=== PATIENT | female | born 1955 | race Caucasian/White ===

== ENCOUNTER 2017-03-09 22:14 | Emergency (ER) | payer MEDICAID ==
[~2017-03-09 22:14] MED LIST: ANTIVERT/2525 MG PO; CLOPIDOGREL75 M1 PO; COLACE100 MG PO; CYMBALTA60 M1 PO; ENALAPRIL MALEAT5 MG PO; FERROUS SULFAT325 M2 PO; GABAPENTIN300 M2 PO; GLIPIZIDE10 MG PO; GLU500 PO; HEP-FORTE1 CAP PO; LAMICTAL100 M2 PO; LAMOTRIGINE100 M1 PO; LEVAQUIN750 MG PO; LITHIUM CARBON300 MG PO; LORAZEPAM0.5 MG PO; METFORMIN HCL500 MG PO; MULTI VITAMINS1 TA1 PO; NORCO1 TAB PO; RES30 PO; RESTORIL30 MG PO; RIS1 PO; RISPERDAL2 MG PO; SIMVASTATIN40 M1 PO; VITAMIN C500 MG PO
[2017-03-10 01:20] VITALS: BP 165/76
== END 2017-03-10 01:20 | disposition home or self-care (01) ==
LOC: ED 22:14
DX: S06.0X1A Concussion with loss of consciousness of 30 minutes or less, initial encounter (principal); Z88.0 Allergy status to penicillin; W01.0XXA Fall on same level from slipping, tripping and stumbling without subsequent striking against object, initial encounter; Y93.89 Activity, other specified; Y99.8 Other external cause status; Y92.89 Other specified places as the place of occurrence of the external cause

== ENCOUNTER 2017-10-09 23:07 | Inpatient (IN) | payer MEDICAID ==
[~2017-10-09] VITALS: Ht 160 cm; Wt 85.0 kg
[~2017-10-09 23:07] MED LIST changes: +CYCLOBENZAPRINE10 MG PO; +FUROSEMIDE40 MG PO; -GABAPENTIN300 M2 PO; +GLIPIZIDE10 M2; +GOOD SENSE OMEP20 MG PO; +LITHIUM CARBON300 M2 PO; +NAPROSYN500 MG PO; +NEU100; +POTASSIUM CHLOR8 MEQ; -RISPERDAL2 MG PO; +TRAZODONE50 M1 PO
[2017-10-09 23:16] VITALS: Ht 160 cm; Wt 85.0 kg
[2017-10-09 23:33] LABS: BASOPHIL % 0.4 % (0-2)
[2017-10-09 23:34] LABS: PLATELET COUNT 424 x10^3mcL (130-400)
[2017-10-09 23:40] LABS: CALCIUM 10.1 mg/dL (8.5-10.1); CARBON DIOXIDE 26.2 mmol/L (21-32); CHLORIDE SERUM 98 mmol/L (98-107); CREATININE SERUM 1.5 mg/dL (0.6-1.0); GFR1 37 mL/min; GLUCOSE SERUM 268 mg/dL (74-106); POTASSIUM SERUM 4.9 mmol/L (3.5-5.1); SODIUM SERUM 135 mmol/L (136-145)
[2017-10-09 23:44] LABS: ALBUMIN 3.7 g/dL (3.4-5.0); ALKALINE PHOSPHATASE 185 U/L (46-116); ALT/SGPT 20 U/L (14-59); AST/SGOT 13 U/L (15-37); BILIRUBIN TOTAL 0.43 mg/dL (0.20-1.00); TOTAL PROTEIN, SERUM 7.6 g/dL (6.4-8.2)
[2017-10-10 01:44] LABS: AMPHETAMINE QUAL UR NONE DETECTED (NEG <=1000)
[2017-10-10 10:10] LABS: CHOLESTEROL/HDL RATIO 3.7
[2017-10-10 10:20] LABS: FREE T4 1.33 ng/dL (0.76-1.46); FREE THYROXINE INDEX 3.4 ug/dL (1.4-4.5); T3 TOTAL 0.8 ng/mL; T4(THYROXINE) 8.6 ug/dL (4.7-13.3)
[2017-10-10 19:34] VITALS: BP 150/82
[2017-10-10 22:19] LABS: UA SPECIFIC GRAVITY 1.025 (1.005-1.035); microscopic required? YES; urine erythrocyte 1+ (NEGATIVE)
[2017-10-11 05:18] VITALS: BP 138/56
[2017-10-11 06:55] LABS: BASOPHIL % 0.7 % (0-2); PLATELET COUNT 308 x10^3mcL (130-400)
[2017-10-11 07:17] LABS: RED CELL DISTRIBUTION WIDTH 16.8 % (11.5-14.5)
[2017-10-11 07:24] LABS: CALCIUM 9.1 mg/dL (8.5-10.1); CARBON DIOXIDE 24.7 mmol/L (21-32); CREATININE SERUM 1.3 mg/dL (0.6-1.0)
[2017-10-11 08:40] VITALS: BP 155/72
[2017-10-11 21:00] VITALS: BP 149/75
[2017-10-12 05:05] VITALS: BP 150/67
[2017-10-12 06:38] LABS: BASOPHIL % 0.4 % (0-2); PLATELET COUNT 282 x10^3mcL (130-400)
[2017-10-12 06:40] LABS: CALCIUM 9.8 mg/dL (8.5-10.1); CARBON DIOXIDE 23.7 mmol/L (21-32); CREATININE SERUM 1.2 mg/dL (0.6-1.0); POTASSIUM SERUM 3.8 mmol/L (3.5-5.1)
[2017-10-12 06:43] LABS: RED CELL DISTRIBUTION WIDTH 16.4 % (11.5-14.5)
[2017-10-12 08:20] VITALS: BP 149/91
[2017-10-12 09:00] VITALS: BP 149/91
[2017-10-13 10:18] VITALS: BP 147/87
[2017-10-13 13:07] VITALS: BP 129/69
[2017-10-13 17:29] VITALS: BP 115/71
[2017-10-13 21:20] VITALS: BP 108/49
[2017-10-14 05:15] VITALS: BP 137/72
[2017-10-14 08:21] VITALS: BP 117/76
[2017-10-14 16:29] VITALS: BP 150/86
[2017-10-15 06:45] VITALS: BP 134/71
[2017-10-16 05:32] VITALS: BP 163/81
[2017-10-16 17:05] VITALS: BP 160/94
[2017-10-17 05:52] VITALS: BP 171/89
[2017-10-17 10:43] VITALS: BP 168/84
[2017-10-17 15:47] VITALS: BP 154/92
[2017-10-17 18:45] VITALS: BP 164/84
[2017-10-17 21:13] VITALS: BP 171/84
[2017-10-18 05:21] VITALS: BP 174/83
[2017-10-18 06:37] VITALS: BP 174/83
[2017-10-18 08:12] VITALS: BP 178/80
[2017-10-18 09:50] VITALS: BP 156/79
[2017-10-18 13:30] VITALS: BP 146/71
[2017-10-18 19:00] VITALS: BP 145/75
[2017-10-19 05:33] VITALS: BP 132/61
[2017-10-19 05:54] LABS: CALCIUM 9.2 mg/dL (8.5-10.1); CARBON DIOXIDE 25.4 mmol/L (21-32); CREATININE SERUM 1.3 mg/dL (0.6-1.0); POTASSIUM SERUM 3.9 mmol/L (3.5-5.1)
[2017-10-19 06:09] LABS: BASOPHIL % 0.4 % (0-2); PLATELET COUNT 198 x10^3mcL (130-400)
[2017-10-19 06:56] LABS: RED CELL DISTRIBUTION WIDTH 16.7 % (11.5-14.5)
[2017-10-19 08:46] VITALS: BP 116/49
[2017-10-19 16:19] VITALS: BP 119/73
[2017-10-19 20:56] VITALS: BP 144/75
[2017-10-20 06:05] VITALS: BP 150/66
[2017-10-20 08:11] VITALS: BP 152/77
[2017-10-20 17:05] VITALS: BP 131/65
[2017-10-20 21:05] VITALS: BP 122/56
[2017-10-21 05:06] VITALS: BP 138/63
[2017-10-21 09:00] VITALS: BP 138/47
[2017-10-21 13:30] VITALS: BP 131/68
[2017-10-21 17:09] VITALS: BP 149/72
[2017-10-21 20:34] VITALS: BP 157/75
[2017-10-22 05:59] VITALS: BP 102/49
[2017-10-22 09:00] VITALS: BP 135/70
[2017-10-22 12:54] VITALS: BP 119/86
[2017-10-22 17:59] VITALS: BP 125/61
[2017-10-22 22:00] VITALS: BP 131/68
[2017-10-23 06:01] VITALS: BP 124/66
[2017-10-23 09:10] VITALS: BP 121/62
[2017-10-23 20:59] VITALS: BP 164/104
[2017-10-24 05:30] VITALS: BP 112/51
[2017-10-24 07:33] LABS: CARBON DIOXIDE 26.4 mmol/L (21-32); CREATININE SERUM 1.4 mg/dL (0.6-1.0); MAGNESIUM 1.2 mg/dL (1.8-2.4); PHOSPHOROUS 3.5 mg/dL (2.5-4.9); POTASSIUM SERUM 3.3 mmol/L (3.5-5.1)
[2017-10-24 10:00] VITALS: BP 133/74
[2017-10-24 20:49] VITALS: BP 120/49
[2017-10-25 05:46] VITALS: BP 107/62
[2017-10-25 15:35] LABS: BASOPHIL % 0.3 % (0-2); PLATELET COUNT 325 x10^3mcL (130-400)
[2017-10-25 15:42] LABS: RED CELL DISTRIBUTION WIDTH 16.9 % (11.5-14.5)
[2017-10-25 15:43] LABS: CALCIUM 9.7 mg/dL (8.5-10.1); CARBON DIOXIDE 26.7 mmol/L (21-32); CREATININE SERUM 1.5 mg/dL (0.6-1.0); MAGNESIUM 1.8 mg/dL (1.8-2.4); PHOSPHOROUS 3.5 mg/dL (2.5-4.9)
[2017-10-25 20:30] VITALS: BP 125/65
[2017-10-25 20:51] VITALS: BP 125/65
[2017-10-26 05:41] VITALS: BP 140/65
[2017-10-26 09:24] VITALS: BP 142/60
[2017-10-26 13:09] VITALS: BP 112/48
[2017-10-26 17:03] VITALS: BP 108/58
[2017-10-27 05:12] VITALS: BP 124/60
[2017-10-27 06:38] LABS: BASOPHIL % 0.5 % (0-2); PLATELET COUNT 322 x10^3mcL (130-400)
[2017-10-27 06:42] LABS: RED CELL DISTRIBUTION WIDTH 17.1 % (11.5-14.5)
[2017-10-27 06:53] LABS: CARBON DIOXIDE 28.6 mmol/L (21-32); CREATININE SERUM 1.3 mg/dL (0.6-1.0); POTASSIUM SERUM 3.4 mmol/L (3.5-5.1)
[2017-10-27 09:43] VITALS: BP 133/54
[2017-10-27 17:37] VITALS: BP 125/63
[2017-10-27 20:54] VITALS: BP 123/59
[2017-10-28 05:36] VITALS: BP 145/49
[2017-10-28 06:47] LABS: CALCIUM 9.6 mg/dL (8.5-10.1); CARBON DIOXIDE 27.6 mmol/L (21-32); CREATININE SERUM 1.4 mg/dL (0.6-1.0); MAGNESIUM 1.6 mg/dL (1.8-2.4); PHOSPHOROUS 2.8 mg/dL (2.5-4.9); POTASSIUM SERUM 3.4 mmol/L (3.5-5.1)
[2017-10-28 20:57] VITALS: BP 146/75
[2017-10-29 05:26] VITALS: BP 128/60
[2017-10-29 06:35] LABS: CALCIUM 9.2 mg/dL (8.5-10.1); CARBON DIOXIDE 30.5 mmol/L (21-32); CREATININE SERUM 1.5 mg/dL (0.6-1.0); POTASSIUM SERUM 3.5 mmol/L (3.5-5.1)
[2017-10-29 08:45] VITALS: BP 128/61
[2017-10-30 07:46] VITALS: BP 125/52
[2017-10-30 16:01] VITALS: BP 123/50
[2017-10-30 20:01] VITALS: BP 122/61
[2017-10-31 04:56] VITALS: BP 151/66
[2017-10-31 06:20] LABS: CALCIUM 10.1 mg/dL (8.5-10.1); CARBON DIOXIDE 30.8 mmol/L (21-32); CREATININE SERUM 1.9 mg/dL (0.6-1.0); PHOSPHOROUS 2.9 mg/dL (2.5-4.9); POTASSIUM SERUM 3.8 mmol/L (3.5-5.1)
[2017-10-31 08:27] VITALS: BP 106/58
[2017-10-31 18:30] VITALS: BP 138/60
[2017-10-31 21:01] VITALS: BP 145/64
[2017-11-01 05:10] VITALS: BP 145/66
[2017-11-01 09:21] VITALS: BP 138/76
[2017-11-01 16:58] VITALS: BP 130/73
[2017-11-01 21:13] VITALS: BP 154/69
[2017-11-02 05:49] VITALS: BP 148/62
[2017-11-02 06:14] LABS: BASOPHIL % 0.4 % (0-2); PLATELET COUNT 333 x10^3mcL (130-400)
[2017-11-02 06:26] LABS: CALCIUM 10.2 mg/dL (8.5-10.1); CARBON DIOXIDE 30.4 mmol/L (21-32); CREATININE SERUM 1.8 mg/dL (0.6-1.0); MAGNESIUM 1.9 mg/dL (1.8-2.4); PHOSPHOROUS 2.6 mg/dL (2.5-4.9); POTASSIUM SERUM 3.8 mmol/L (3.5-5.1)
[2017-11-02 07:07] LABS: RED CELL DISTRIBUTION WIDTH 17.1 % (11.5-14.5)
[2017-11-02 09:30] VITALS: BP 100/56; BP 148/69
[2017-11-02 17:46] VITALS: BP 145/68
[2017-11-02 21:54] VITALS: BP 131/61
[2017-11-03 05:39] VITALS: BP 117/59
[2017-11-03 08:33] VITALS: BP 113/54
[2017-11-03 17:53] VITALS: BP 124/54
[2017-11-04 05:56] VITALS: BP 130/52
[2017-11-04 06:12] LABS: BASOPHIL % 0.4 % (0-2); PLATELET COUNT 298 x10^3mcL (130-400)
[2017-11-04 06:37] LABS: RED CELL DISTRIBUTION WIDTH 17.1 % (11.5-14.5)
[2017-11-04 06:41] LABS: CALCIUM 10.6 mg/dL (8.5-10.1); CARBON DIOXIDE 28.9 mmol/L (21-32); CREATININE SERUM 1.8 mg/dL (0.6-1.0); MAGNESIUM 1.9 mg/dL (1.8-2.4); PHOSPHOROUS 2.5 mg/dL (2.5-4.9); POTASSIUM SERUM 4.2 mmol/L (3.5-5.1)
[2017-11-04 10:46] VITALS: BP 111/63
[2017-11-04 14:00] VITALS: BP 136/61
[2017-11-04 20:51] VITALS: BP 141/63
[2017-11-05 05:25] VITALS: BP 133/70
[2017-11-05 08:39] VITALS: BP 121/78
[2017-11-05] MEDS ORDERED: GEODON60 MG PO (16:46)
[2017-11-05 17:23] VITALS: BP 140/65
== END 2017-11-05 18:55 | disposition home or self-care (01) | DRG 42 ==
LOC: ED 23:07 → DU 10-10 17:43 → MU 10-13 14:48
PROVIDERS: Emergency Medicine; Family Medicine; Student in an Organized Health Care Education/Training Program
DX: G30.9 Alzheimer's disease, unspecified (principal); N17.0 Acute kidney failure with tubular necrosis; E43 Unspecified severe protein-calorie malnutrition; G93.41 Metabolic encephalopathy; R45.851 Suicidal ideations; F02.80 Dementia in other diseases classified elsewhere, unspecified severity, without behavioral disturbance, psychotic disturbance, mood disturbance, and anxiety; E86.0 Dehydration; F25.0 Schizoaffective disorder, bipolar type; E11.65 Type 2 diabetes mellitus with hyperglycemia; I16.0 Hypertensive urgency; E87.1 Hypo-osmolality and hyponatremia; E87.6 Hypokalemia; E83.42 Hypomagnesemia; E78.5 Hyperlipidemia, unspecified; R80.9 Proteinuria, unspecified; D64.9 Anemia, unspecified; G47.00 Insomnia, unspecified; K21.9 Gastro-esophageal reflux disease without esophagitis; D35.00 Benign neoplasm of unspecified adrenal gland; Z68.28 Body mass index [BMI] 28.0-28.9, adult; F17.210 Nicotine dependence, cigarettes, uncomplicated; Z79.84 Long term (current) use of oral hypoglycemic drugs; Z91.19 Patient's noncompliance with other medical treatment and regimen
CPT/HCPCS: 84439; 97110-GP; G0480; J1630; J2060; J2405; J3486; J3490; J7030; Q0092

== ENCOUNTER 2017-12-28 17:47 | Inpatient (IN) | payer MEDICAID ==
[~2017-12-28] VITALS: Ht 170.2 cm; Wt 78.5 kg
[~2017-12-28 17:47] MED LIST changes: +GEODON60 MG PO
[2017-12-28 17:55] VITALS: Ht 170.2 cm; Wt 78.5 kg
[2017-12-28 18:50] LABS: BASOPHIL % 0.6 % (0-2)
[2017-12-28 18:53] LABS: PLATELET COUNT 450 x10^3mcL (130-400); RED CELL DISTRIBUTION WIDTH 17.2 % (11.5-14.5)
[2017-12-28 19:05] LABS: microscopic required? YES; urine erythrocyte 2+ (NEGATIVE)
[2017-12-28 19:11] LABS: CARBON DIOXIDE 23.7 mmol/L (21-32); CREATININE SERUM 1.6 mg/dL (0.6-1.0); POTASSIUM SERUM 4.6 mmol/L (3.5-5.1)
[2017-12-28 19:15] LABS: ALBUMIN 3.5 g/dL (3.4-5.0); BILIRUBIN TOTAL 0.47 mg/dL (0.20-1.00); MAGNESIUM 2.3 mg/dL (1.8-2.4); TOTAL PROTEIN, SERUM 8.1 g/dL (6.4-8.2)
[2017-12-29] MEDS ORDERED: TEMAZEPAM30 MG PO (02:11)
[2017-12-29] MEDS ORDERED: LAM100 PO (02:11)
[2017-12-29] MEDS ORDERED: ZOCOR40 MG PO (02:11)
[2017-12-29] MEDS ORDERED: RISPERDAL1 M1 PO (02:11)
[2017-12-29] MEDS ORDERED: CYCLOBENZAPRINE10 MG PO (02:12)
[2017-12-29] MEDS ORDERED: NAPROXEN500 MG PO (02:12)
[2017-12-29] MEDS ORDERED: NEU300 PO (02:12)
[2017-12-29] MEDS ORDERED: LITHIUM CARBON300 M1 PO (02:12)
[2017-12-29] MEDS ORDERED: POTASSIUM CHLO10 MEQ (02:13)
[2017-12-29] MEDS ORDERED: FUROSEMIDE40 MG PO (02:13)
[2017-12-29] MEDS ORDERED: METFORMIN HYDR500 M1 PO (02:13)
[2017-12-29] MEDS ORDERED: ENALAPRIL MALEAT5 MG PO (02:14)
[2017-12-29] MEDS ORDERED: GLIPIZIDE ER10 M1 PO (02:14)
[2017-12-29] MEDS ORDERED: TRAZODONE50 M1 PO (02:15)
[2017-12-29] MEDS ORDERED: GOOD SENSE OMEP20 MG PO (02:15)
[2017-12-29 03:34] VITALS: BP 158/79
[2017-12-29 03:34] LABS: CHOLESTEROL/HDL RATIO 3.4; PHOSPHOROUS 4.1 mg/dL (2.5-4.9)
[2017-12-29 03:42] LABS: T3 TOTAL 0.87 ng/mL
[2017-12-29 03:43] LABS: FREE T4 1.56 ng/dL (0.76-1.46); FREE THYROXINE INDEX 4.3 ug/dL (1.4-4.5); T4(THYROXINE) 11.1 ug/dL (4.7-13.3)
[2017-12-29 06:34] LABS: BASOPHIL % 0.3 % (0-2); PLATELET COUNT 383 x10^3mcL (130-400)
[2017-12-29 06:36] LABS: CALCIUM 9.1 mg/dL (8.5-10.1); CARBON DIOXIDE 22.4 mmol/L (21-32); CREATININE SERUM 1.3 mg/dL (0.6-1.0); MAGNESIUM 2.1 mg/dL (1.8-2.4); PHOSPHOROUS 3.5 mg/dL (2.5-4.9); POTASSIUM SERUM 4.2 mmol/L (3.5-5.1)
[2017-12-29 06:47] LABS: RED CELL DISTRIBUTION WIDTH 17.4 % (11.5-14.5)
[2017-12-29 08:51] VITALS: BP 151/84
[2017-12-29 10:16] LABS: AMPHETAMINE QUAL UR NONE DETECTED (See below)
[2017-12-29 13:30] VITALS: BP 133/78
[2017-12-29 18:02] VITALS: BP 134/54
[2017-12-29 21:41] VITALS: BP 119/52
[2017-12-30 05:53] VITALS: BP 115/40
[2017-12-30 06:16] LABS: BASOPHIL % 0.5 % (0-2); PLATELET COUNT 341 x10^3mcL (130-400)
[2017-12-30 06:19] LABS: CALCIUM 8.9 mg/dL (8.5-10.1); CARBON DIOXIDE 24.8 mmol/L (21-32); CREATININE SERUM 1.4 mg/dL (0.6-1.0); MAGNESIUM 1.7 mg/dL (1.8-2.4); PHOSPHOROUS 2.4 mg/dL (2.5-4.9); POTASSIUM SERUM 4.5 mmol/L (3.5-5.1)
[2017-12-30 07:19] LABS: RED CELL DISTRIBUTION WIDTH 17.3 % (11.5-14.5)
[2017-12-30 08:21] VITALS: BP 114/62
[2017-12-30 11:58] VITALS: BP 120/66
[2017-12-30] MEDS ORDERED: KEFLEX500 M1 PO ×2 (13:38→13:40)
[2017-12-30 14:24] VITALS: BP 120/66
[2017-12-30 16:06] VITALS: BP 123/66
== END 2017-12-30 18:17 | disposition home or self-care (01) | DRG 750 ==
LOC: ED 17:47 → DU 12-29 01:25
PROVIDERS: Emergency Medicine; Family Medicine; Internal Medicine
DX: F25.0 Schizoaffective disorder, bipolar type (principal); N17.0 Acute kidney failure with tubular necrosis; G93.41 Metabolic encephalopathy; N39.0 Urinary tract infection, site not specified; E11.65 Type 2 diabetes mellitus with hyperglycemia; R80.9 Proteinuria, unspecified; K21.9 Gastro-esophageal reflux disease without esophagitis; E78.5 Hyperlipidemia, unspecified; E87.1 Hypo-osmolality and hyponatremia; I10 Essential (primary) hypertension; Z89.411 Acquired absence of right great toe; Z68.26 Body mass index [BMI] 26.0-26.9, adult; F17.210 Nicotine dependence, cigarettes, uncomplicated; Z79.84 Long term (current) use of oral hypoglycemic drugs; Z91.14 Patient's other noncompliance with medication regimen
CPT/HCPCS: 83880; 84439; J0696; J2060; J7030; J7040; Q0092

== ENCOUNTER 2018-01-02 13:43 | Emergency (ER) | payer MEDICAID ==
[~2018-01-02] VITALS: Ht 160 cm; Wt 77.1 kg
[~2018-01-02 13:43] MED LIST changes: +GLIPIZIDE ER10 M1 PO; +KEFLEX500 M1 PO; +LAM100 PO; +LITHIUM CARBON300 M1 PO; +METFORMIN HYDR500 M1 PO; +NAPROXEN500 MG PO; +NEU300 PO; +POTASSIUM CHLO10 MEQ; +RISPERDAL1 M1 PO; +TEMAZEPAM30 MG PO; +ZOCOR40 MG PO
[2018-01-02 13:48] VITALS: Ht 160 cm; Wt 77.1 kg
[2018-01-02 21:39] VITALS: BP 126/66
== END 2018-01-02 21:39 | disposition home or self-care (01) ==
LOC: ED 13:43
DX: S70.02XA Contusion of left hip, initial encounter (principal); I10 Essential (primary) hypertension; E11.9 Type 2 diabetes mellitus without complications; F31.9 Bipolar disorder, unspecified; W17.89XA Other fall from one level to another, initial encounter; Y93.89 Activity, other specified; Y92.89 Other specified places as the place of occurrence of the external cause; Y99.8 Other external cause status
CPT/HCPCS: J1885; Q0092

== ENCOUNTER 2018-01-03 04:52 | Emergency (ER) | payer MEDICAID ==
[~2018-01-03] VITALS: Ht 167.6 cm; Wt 95.3 kg
[2018-01-03 04:54] VITALS: Ht 167.6 cm; Wt 95.3 kg
[2018-01-03 07:33] LABS: microscopic required? NO
[2018-01-03 07:42] LABS: UA SPECIFIC GRAVITY <=1.005 (1.005-1.035); urine erythrocyte NEGATIVE (NEGATIVE)
[2018-01-03 07:54] LABS: CALCIUM 9.7 mg/dL (8.5-10.1); CARBON DIOXIDE 26.4 mmol/L (21-32); CREATININE SERUM 1.5 mg/dL (0.6-1.0); POTASSIUM SERUM 4.1 mmol/L (3.5-5.1)
[2018-01-03 08:15] LABS: BILIRUBIN TOTAL 0.44 mg/dL (0.20-1.00); TOTAL PROTEIN, SERUM 6.7 g/dL (6.4-8.2)
[2018-01-03 08:16] LABS: ALBUMIN 3.2 g/dL (3.4-5.0)
[2018-01-03 08:26] LABS: BASOPHIL % 0.5 % (0-2); PLATELET COUNT 359 x10^3mcL (130-400)
[2018-01-03 08:35] LABS: CK-MB 0.9 ng/mL (0-3.6)
[2018-01-03 10:48] VITALS: BP 148/82
== END 2018-01-03 11:32 | disposition home or self-care (01) ==
LOC: ED 04:52
PROVIDERS: Emergency Medicine
DX: F23 Brief psychotic disorder (principal); I10 Essential (primary) hypertension; E11.9 Type 2 diabetes mellitus without complications; F31.9 Bipolar disorder, unspecified
CPT/HCPCS: J7030

== ENCOUNTER 2018-01-19 02:19 | Inpatient (IN) | payer MEDICAID ==
[~2018-01-19] VITALS: Ht 162.6 cm; Wt 68.0 kg
[~2018-01-19 02:19] MED LIST changes: -HEP-FORTE1 CAP PO; +LEADER ESSENTIA1 TAB PO
[2018-01-19 03:18] LABS: BASOPHIL % 0.4 % (0-2); PLATELET COUNT 328 x10^3mcL (130-400)
[2018-01-19 03:22] LABS: RED CELL DISTRIBUTION WIDTH 16.1 % (11.5-14.5)
[2018-01-19 03:31] LABS: ALKALINE PHOSPHATASE 107 U/L (46-116); AST/SGOT 17 U/L (15-37); BILIRUBIN TOTAL 0.52 mg/dL (0.20-1.00); CALCIUM 10.7 mg/dL (8.5-10.1); CARBON DIOXIDE 22.4 mmol/L (21-32); CHLORIDE SERUM 93 mmol/L (98-107); CREATININE SERUM 1.5 mg/dL (0.6-1.0); GFR1 37 mL/min; GLUCOSE SERUM 154 mg/dL (74-106)
[2018-01-19 03:35] LABS: ALBUMIN 3.2 g/dL (3.4-5.0)
[2018-01-19 03:44] LABS: ALT/SGPT 18 U/L (14-59); SODIUM SERUM 127 mmol/L (136-145)
[2018-01-19 05:37] LABS: MAGNESIUM 1.6 mg/dL (1.8-2.4); PHOSPHOROUS 3.8 mg/dL (2.5-4.9)
[2018-01-19 05:39] LABS: CHOLESTEROL/HDL RATIO 4.9
[2018-01-19 05:51] LABS: T3 TOTAL 0.79 ng/mL
[2018-01-19 05:57] LABS: FREE T4 1.39 ng/dL (0.76-1.46); FREE THYROXINE INDEX 3.4 ug/dL (1.4-4.5)
[2018-01-19 07:51] VITALS: BP 129/54
[2018-01-19 15:52] LABS: CALCIUM 10.6 mg/dL (8.5-10.1); CREATININE SERUM 1.5 mg/dL (0.6-1.0); POTASSIUM SERUM 3.5 mmol/L (3.5-5.1)
[2018-01-19 16:02] LABS: UA SPECIFIC GRAVITY <=1.005 (1.005-1.035); microscopic required? YES; urine erythrocyte 2+ (NEGATIVE)
[2018-01-19 16:14] LABS: AMPHETAMINE QUAL UR NONE DETECTED (See below)
[2018-01-19 18:45] VITALS: BP 132/69
[2018-01-19 21:23] VITALS: BP 136/65
[2018-01-20 05:21] VITALS: BP 154/71
[2018-01-20 06:57] LABS: CALCIUM 9.8 mg/dL (8.5-10.1); CARBON DIOXIDE 25.1 mmol/L (21-32); CREATININE SERUM 1.5 mg/dL (0.6-1.0); MAGNESIUM 1.8 mg/dL (1.8-2.4); PHOSPHOROUS 3.6 mg/dL (2.5-4.9); POTASSIUM SERUM 3.6 mmol/L (3.5-5.1)
[2018-01-20 07:01] LABS: BASOPHIL % 0.5 % (0-2); PLATELET COUNT 282 x10^3mcL (130-400)
[2018-01-20 07:02] LABS: RED CELL DISTRIBUTION WIDTH 16.5 % (11.5-14.5)
[2018-01-20 09:36] VITALS: BP 151/73
[2018-01-20 17:09] VITALS: BP 147/65
[2018-01-20 21:36] VITALS: BP 140/71
[2018-01-21 05:42] VITALS: BP 119/51
[2018-01-21 06:20] LABS: BASOPHIL % 0.5 % (0-2); PLATELET COUNT 232 x10^3mcL (130-400)
[2018-01-21 06:46] LABS: RED CELL DISTRIBUTION WIDTH 16.4 % (11.5-14.5)
[2018-01-21 06:51] LABS: CALCIUM 9.7 mg/dL (8.5-10.1); CARBON DIOXIDE 25.1 mmol/L (21-32); CREATININE SERUM 1.4 mg/dL (0.6-1.0); MAGNESIUM 1.5 mg/dL (1.8-2.4); PHOSPHOROUS 3.4 mg/dL (2.5-4.9); POTASSIUM SERUM 3.6 mmol/L (3.5-5.1)
[2018-01-21 09:10] VITALS: BP 143/68
[2018-01-21 17:23] VITALS: BP 132/69
[2018-01-21 21:01] VITALS: BP 119/60
[2018-01-22 05:08] VITALS: BP 149/76
[2018-01-22 06:34] LABS: CALCIUM 9.9 mg/dL (8.5-10.1); CARBON DIOXIDE 25.7 mmol/L (21-32); CREATININE SERUM 1.5 mg/dL (0.6-1.0); POTASSIUM SERUM 3.2 mmol/L (3.5-5.1)
[2018-01-22 06:37] LABS: BASOPHIL % 0.7 % (0-2); PLATELET COUNT 258 x10^3mcL (130-400)
[2018-01-22 06:51] LABS: RED CELL DISTRIBUTION WIDTH 16.5 % (11.5-14.5)
[2018-01-22 08:34] VITALS: BP 138/67
[2018-01-22 18:03] VITALS: BP 150/67
[2018-01-22 20:03] VITALS: BP 143/70
[2018-01-23 06:15] VITALS: BP 152/58
[2018-01-23 06:24] LABS: CALCIUM 10.2 mg/dL (8.5-10.1); CARBON DIOXIDE 25.3 mmol/L (21-32); CREATININE SERUM 1.4 mg/dL (0.6-1.0); POTASSIUM SERUM 4.7 mmol/L (3.5-5.1)
[2018-01-23 09:19] VITALS: BP 143/58
[2018-01-23 17:53] VITALS: BP 165/70
[2018-01-23 21:06] VITALS: BP 141/56
[2018-01-24 05:57] VITALS: BP 148/90
[2018-01-24 07:55] VITALS: BP 175/97
[2018-01-24 18:16] VITALS: BP 144/66
[2018-01-24 20:00] VITALS: BP 142/72
[2018-01-25 05:27] VITALS: BP 127/58
[2018-01-25 06:49] LABS: BASOPHIL % 0.5 % (0-2); PLATELET COUNT 296 x10^3mcL (130-400)
[2018-01-25 06:56] LABS: RED CELL DISTRIBUTION WIDTH 16.9 % (11.5-14.5)
[2018-01-25 07:09] LABS: CALCIUM 9.9 mg/dL (8.5-10.1); CARBON DIOXIDE 25.8 mmol/L (21-32); CREATININE SERUM 1.5 mg/dL (0.6-1.0); POTASSIUM SERUM 4.9 mmol/L (3.5-5.1)
[2018-01-25 09:00] VITALS: BP 145/55
[2018-01-25 09:14] LABS: MAGNESIUM 1.9 mg/dL (1.8-2.4); PHOSPHOROUS 4.3 mg/dL (2.5-4.9)
[2018-01-25 17:54] VITALS: BP 162/82
[2018-01-25 19:58] VITALS: BP 149/76
[2018-01-26 05:18] VITALS: BP 166/74
[2018-01-26 09:16] VITALS: BP 158/75
[2018-01-26 17:24] VITALS: BP 148/83
[2018-01-26 21:04] VITALS: BP 161/78
[2018-01-27 05:58] VITALS: BP 143/75
[2018-01-27 08:02] VITALS: BP 142/61
[2018-01-27 16:07] VITALS: BP 136/67
[2018-01-27 21:03] VITALS: BP 136/75
[2018-01-28 05:11] VITALS: BP 156/81
[2018-01-28 17:04] VITALS: BP 140/62
[2018-01-28 21:07] VITALS: BP 134/73
[2018-01-29 05:28] VITALS: BP 147/78
[2018-01-29 08:16] VITALS: BP 124/70
[2018-01-29 17:28] VITALS: BP 137/62
[2018-01-29 20:46] VITALS: BP 149/75
[2018-01-30 05:30] VITALS: BP 148/69
[2018-01-30 08:00] VITALS: BP 113/40
[2018-01-30 17:28] VITALS: BP 141/66
[2018-01-30 21:08] VITALS: BP 130/64
[2018-01-31 04:57] VITALS: BP 132/50
[2018-01-31 08:34] VITALS: BP 121/60
[2018-01-31 16:03] VITALS: Ht 162.6 cm; Wt 68.0 kg
[2018-01-31 17:45] VITALS: BP 150/64
[2018-01-31 20:18] VITALS: BP 126/71
[2018-02-01 05:12] VITALS: BP 132/72
[2018-02-01 07:22] LABS: BASOPHIL % 0.5 % (0-2); PLATELET COUNT 311 x10^3mcL (130-400)
[2018-02-01 07:26] LABS: RED CELL DISTRIBUTION WIDTH 16.3 % (11.5-14.5)
[2018-02-01 07:28] LABS: CARBON DIOXIDE 23.8 mmol/L (21-32); CREATININE SERUM 1.4 mg/dL (0.6-1.0); POTASSIUM SERUM 4.7 mmol/L (3.5-5.1)
[2018-02-01 08:47] VITALS: BP 145/68
[2018-02-01 17:51] VITALS: BP 154/79
[2018-02-01 20:29] VITALS: BP 139/86
[2018-02-02 05:19] VITALS: BP 150/73
[2018-02-02 06:52] LABS: BASOPHIL % 0.5 % (0-2); PLATELET COUNT 331 x10^3mcL (130-400)
[2018-02-02 07:03] LABS: RED CELL DISTRIBUTION WIDTH 17.2 % (11.5-14.5)
[2018-02-02 07:05] LABS: CALCIUM 10.8 mg/dL (8.5-10.1); CARBON DIOXIDE 23.9 mmol/L (21-32); CREATININE SERUM 1.5 mg/dL (0.6-1.0); POTASSIUM SERUM 4.9 mmol/L (3.5-5.1)
[2018-02-02 09:57] VITALS: BP 152/86
[2018-02-02 17:54] VITALS: BP 152/65
[2018-02-02 20:46] VITALS: BP 148/67
[2018-02-03 05:25] VITALS: BP 123/62
[2018-02-03 06:49] LABS: BASOPHIL % 0.5 % (0-2); PLATELET COUNT 326 x10^3mcL (130-400)
[2018-02-03 07:01] LABS: RED CELL DISTRIBUTION WIDTH 16.9 % (11.5-14.5)
[2018-02-03 07:07] LABS: CALCIUM 10.6 mg/dL (8.5-10.1); CARBON DIOXIDE 23.9 mmol/L (21-32); CREATININE SERUM 1.5 mg/dL (0.6-1.0); POTASSIUM SERUM 4.6 mmol/L (3.5-5.1)
[2018-02-03 10:21] VITALS: BP 131/45; BP 145/66
[2018-02-03 17:18] VITALS: BP 132/74
[2018-02-03 21:19] VITALS: BP 138/83
[2018-02-04 04:41] VITALS: BP 121/70
[2018-02-04 09:36] VITALS: BP 148/77
[2018-02-04 16:44] VITALS: BP 136/70
[2018-02-04 20:44] VITALS: BP 126/57
[2018-02-05 08:08] VITALS: BP 135/63
[2018-02-05] MEDS ORDERED: PRI20 PO (09:48)
[2018-02-05] MEDS ORDERED: RIS1 PO (09:48)
[2018-02-05 11:17] VITALS: BP 135/63
== END 2018-02-05 11:40 | DRG 750 ==
LOC: ED 02:19 → MU 04:12
PROVIDERS: Emergency Medicine; Family Medicine; Internal Medicine
DX: F25.0 Schizoaffective disorder, bipolar type (principal); N17.0 Acute kidney failure with tubular necrosis; G93.41 Metabolic encephalopathy; E44.0 Moderate protein-calorie malnutrition; E11.65 Type 2 diabetes mellitus with hyperglycemia; E83.52 Hypercalcemia; E87.1 Hypo-osmolality and hyponatremia; G30.9 Alzheimer's disease, unspecified; F02.80 Dementia in other diseases classified elsewhere, unspecified severity, without behavioral disturbance, psychotic disturbance, mood disturbance, and anxiety; E86.0 Dehydration; E11.22 Type 2 diabetes mellitus with diabetic chronic kidney disease; I12.9 Hypertensive chronic kidney disease with stage 1 through stage 4 chronic kidney disease, or unspecified chronic kidney disease; N18.3 Chronic kidney disease, stage 3 (moderate); N39.0 Urinary tract infection, site not specified; I44.5 Left posterior fascicular block; E78.5 Hyperlipidemia, unspecified; Z68.25 Body mass index [BMI] 25.0-25.9, adult; Z91.19 Patient's noncompliance with other medical treatment and regimen
CPT/HCPCS: 82962; 84439; 97110-GP; 97116-GP; 97530-GP; 97535-GP; G0480; J0696; J1630; J7030; Q0092

== ENCOUNTER 2018-12-18 23:29 | Inpatient (IN) | payer OTHER, MEDICAID ==
[~2018-12-18] VITALS: Ht 162.6 cm; Wt 91.0 kg
[~2018-12-18 23:29] MED LIST changes: +PRI20 PO
[2018-12-19 00:25] LABS: BASOPHIL % 0.8 % (0-2); PLATELET COUNT 261 x10^3mcL (130-400)
[2018-12-19 00:27] LABS: RED CELL DISTRIBUTION WIDTH 15.6 % (11.5-14.5)
[2018-12-19 00:38] LABS: CALCIUM 10.3 mg/dL (8.5-10.1); CHLORIDE SERUM 93 mmol/L (98-107); CREATININE SERUM 1.3 mg/dL (0.6-1.0); GFR1 44 mL/min; GLUCOSE SERUM 182 mg/dL (74-106); POTASSIUM SERUM 4.4 mmol/L (3.5-5.1); SODIUM SERUM 130 mmol/L (136-145)
[2018-12-19 00:43] LABS: ALKALINE PHOSPHATASE 98 U/L (46-116); ALT/SGPT 32 U/L (14-59); AST/SGOT 20 U/L (15-37); BILIRUBIN TOTAL 0.4 mg/dL (0.20-1.00)
[2018-12-19 00:44] LABS: ALBUMIN 3.2 g/dL (3.4-5.0)
--- NOTE | 2018-12-19 00:49 | NUR ---
PT SLEEPING COMFORTABLY IN BED. STILL UNCOOPERATIVE. NO CHANGE IN STATUS AT THIS TIME.
[2018-12-19 01:12] LABS: FREE T4 > 8.00 ng/dL (0.76-1.46)
--- NOTE | 2018-12-19 02:13 | NUR ---
PT INCONTINENT OF URINE. INCONTINENT CARE GIVEN BY RNs X2 AND EMT. PT NOT COOPERATIVE. STILL NON-VERBAL. PT ADJUSTED MULTIPLE TIMES IN BED TO A POSITION OF COMFORT BUT TENDS TO ROLL TO R SIDE. NO CHANGE IN STATUS. PT ADMITTED. PT TO BE TRANSPORTED TO FLOOR POST CALLING REPORT.
--- NOTE | 2018-12-19 02:17 | NUR ---
UNABLE TO COMPLETE MED REC. PT NON-VERBAL SINCE ED ARRIVAL.
--- NOTE | 2018-12-19 02:46 | NUR ---
PT TRANSPORTED TO FLOOR AT 0230 BY RN AND EMT.
[2018-12-19 03:13] VITALS: BP 138/81
[2018-12-19 03:32] VITALS: BP 138/81
--- NOTE | 2018-12-19 03:51 | NUR ---
RECEIVED PT. FROM ER VIA [facility] ACCOMPANIED BY ER NURSE. SHE IS AWAKE AND ALERT. PT. HAS BEEN NON-VERBAL SINCE ARRIVAL TO UNIT AND PER REPORT FROM PT.'S SPOUSE, SHA HAS STOPPED SPEAKING FOR THE PAST 3 DAYS, HAS SHUT DOWN HER COMMUNICATION. PER HX, PT. HAS DONE THIS BEFORE, USUALLY ABLE TO SPEAK. PT. ASLO NOT FOLLOWING ANY COMMANDS AT THIS TIME. BREATH SOUNDS CLEAR THROUGHOUT LUNG VALDEZ, RESP. EVEN, UNLABORED. NO SOB NOTED. PT. ON RA. PT. PLACED ON TELE #8, SINUS TACH. NO EDEMA NOTED TO EXTREMTIES. PEDAL PULSES MODERATE RON. RT. GREAT TOE W/ OLD SURGICAL AMPUTATION SCAR, SITE SCABBED, RED, NO DRAINAGE, WITH YELLOWISH SURROUNDING TISSUE. SITE NOT FULLY HEALED. IVF NS INFUSING FROM ER, TO RFA. PT. CLEANED AND MADE COMFORTABLE AT THIS TIME. BED LOW LAYING AND ALARM ON. FREQUENT ROUNDS PLANNED.
[2018-12-19 06:04] LABS: BASOPHIL % 0.5 % (0-2); PLATELET COUNT 252 x10^3mcL (130-400)
--- NOTE | 2018-12-19 06:04 | NUR ---
PT. REMAINS "QUIET", NOT SPEAKING TO ANYONE AND NOT FOLLOWING COMMANDS. SHE HAS MADE SOME EYE CONTACT WUTH ME, BUT NOT FOR LONG. PT. PULLING AT TELE LEADS AT TIMES AND REMOVING PROTECTIVE DRSG FROM IV SITE. SITE SECURED, SITE REMAINS INTACT. BED LOW LAYING AND ALARM ON. WILL CONTINUE TO MONITOR UNTIL ENDORSEMENT TO INCOMING NURSE.
[2018-12-19 06:23] LABS: CALCIUM 9.9 mg/dL (8.5-10.1); CARBON DIOXIDE 28.1 mmol/L (21-32); CREATININE SERUM 1.2 mg/dL (0.6-1.0); POTASSIUM SERUM 4.3 mmol/L (3.5-5.1)
[2018-12-19 07:04] LABS: RED CELL DISTRIBUTION WIDTH 15.5 % (11.5-14.5)
--- NOTE | 2018-12-19 07:10 | NUR ---
RECIEVED PT RESTING IN BED WITH SITTER AT SIDE. PT IN CATATONIC STATE, UNABLE TO ASSESS. IV FOUND PULLED OUT OF PT AND ON SIDE OF PT IN BED DURING REPORT WITH NIGHT NURSE AT BEDSIDE. ASKED HER TO DISGARD OLD IV, CHECK SITE, AND INSERT NEW IV. SHE REFUSED TO PUT A NEW IV IN BUT SAID SHE WILL THROW OLD ONE OUT, CHARGE NOTIFIED. I WILL ASSESS SITE AND INSERT NEW IV. TELE MONITOR #8 CONNECTED TO PT, NO S/S OF CP OR PRESSURE. LUNGS CTAB. INCONTINENT. SAFETY PRECAUTIONS IN PLACE, CALL LIGHT WITHIN REACH, SITTER AT BEDSIDE, WILL CONTINUE TO MONITOR.
[2018-12-19 08:31] VITALS: BP 143/70
--- NOTE | 2018-12-19 08:52 | NUR ---
Nutrition Note: Trigger received for "admitted with potential risk dx" on 12/19/18. Pt. admitted with dx acute psychosis and hypothyroidism per H and P documentation. Based on nutritional screening, pt. does not meet high risk criteria and will be assessed as low risk with initial assessment due 12/26/18.
--- NOTE | 2018-12-19 09:50 | NUR ---
ALL MORNING MEDS HELD D/T PT BEING IN CATATONIC STATE. UNABLE TO ASSESS, CHARGE AWARE. WILL MONITOR.
[2018-12-19 10:45] VITALS: Ht 162.6 cm; Wt 91.0 kg
--- NOTE | 2018-12-19 12:16 | NUR ---
PT ASSESSED AGAIN, STILL NO RESPONCE TO VERBAL/PHYSICAL STIMULI. PT APPEARS IN NO DISTRESS AT THIS TIME. VS WNL. WILL CONTINUE TO MONITOR.
[2018-12-19 12:32] VITALS: BP 161/55
--- NOTE | 2018-12-19 14:30 | NUR ---
NE IV STARTED IN RAC 20GUAGE. INTACT AND PATENT WITH NO REDNESS OR INFLAMMATION. COVERED WITH KERRI BANDAGE SO PT WILL NOT PULL OUT.
--- NOTE | 2018-12-19 15:14 | NUR ---
PT BS 180 BUT NO COVERAGE GIVEN D/T PT NOT EATING AT THIS TIME (PER MICHAEL CHARGE).
--- NOTE | 2018-12-19 15:40 | NUR ---
DR PENNINGTON AWARE THAT PT IS STILL NOT A/O TO TAKE PO MEDICATIONS, ASKED IF WE WOULD GIVE VIA IV AND SHE SAID SHE WILL ASK PSYCH DOCTOR. WILL F/U.
[2018-12-19 17:06] VITALS: BP 155/78
--- NOTE | 2018-12-19 17:33 | NUR ---
PT NONVERBAL WITH FLAT EFFECT. VS WNL. NO S/S OF ANY DISTRESS, PAIN, OR SOB NOTED. UNABLE TO ASSESS NEURO. TELE #8 CONNECTED TO PT, NO CP OR PRESSURE NOTED. SKIN KEPT CLEAN AND DRY ALL SHIFT. IV IN RAC INTACT AND PATENT WITH NO REDNESS OR INFLAMMATION NOTED. NS RUNNING AT 70/HR. SITTER AT BEDSIDE, SAFETY PRECAUTIONS IN PLACE, CALL LIGHT WITHIN REACH, WILL ENDORSE TO NIGHT NURSE.
--- NOTE | 2018-12-19 19:09 | NUR ---
NEW ORDER FOR CARRION CATHETER AND UA CULTURE, ORDER CARRIED OUT. CARRION IN PLACE AND UA CULTURE SENT TO LAB.
[2018-12-19 19:29] LABS: microscopic required? YES; urine erythrocyte 2+ (NEGATIVE)
--- NOTE | 2018-12-19 19:45 | NUR ---
SHIFT REASSESSMENT DONE.PATIENT ALERT,NONVERBAL/FLAT AFFECT.BREATHING EASY.GEN WEAKNESS.FULL ROM,WATCH CLOSELY FOR SAFETY.RAC HEPLOCK/IV SITE SECURED.TELE 8 SR.SHEYLA INTACT.CALL LIGHT IN REACH.
[2018-12-19 19:48] LABS: AMPHETAMINE QUAL UR NONE DETECTED (See below)
[2018-12-19 20:38] VITALS: BP 149/81
--- NOTE | 2018-12-19 21:00 | NUR ---
PATIENT GIVEN PM MEDS,SWALLOWS WELL WITH APPLE SAUCE.GIVEN ATIVAN 0.5 MG TO REVERSE CATATONIC STATE,DR DEUTSCH ALSO RECOMMENT 1:1 SITTER FOR SAFETY.WILL HAVE DR KENNEDY WRITE ORDER/OFFICIAL ORDER.
--- NOTE | 2018-12-20 01:24 | NUR ---
PATIENT CHECKED AT INTERVALS FOR NEEDS AND SAFETY.SITTER AT BEDSIDE FOR SAFETY.
[2018-12-20 05:55] VITALS: BP 166/80
[2018-12-20 06:05] VITALS: BP 150/80
--- NOTE | 2018-12-20 06:05 | NUR ---
PATIENT SLEPT WELL AT NIGHT.I AND O MEASURED.BP RECHECKED.AND RECORDED.WILL ENDORSE TO NEXT SHIFT.
[2018-12-20 06:52] LABS: BASOPHIL % 0.3 % (0-2); PLATELET COUNT 248 x10^3mcL (130-400)
[2018-12-20 07:08] LABS: RED CELL DISTRIBUTION WIDTH 15.8 % (11.5-14.5)
[2018-12-20 07:10] LABS: CALCIUM 9.3 mg/dL (8.5-10.1); CARBON DIOXIDE 23.9 mmol/L (21-32); CREATININE SERUM 1.2 mg/dL (0.6-1.0); MAGNESIUM 1.6 mg/dL (1.8-2.4); PHOSPHOROUS 2.9 mg/dL (2.5-4.9); POTASSIUM SERUM 4.1 mmol/L (3.5-5.1)
--- NOTE | 2018-12-20 07:25 | NUR ---
RECEIVED BEDSIDE REPORT. SEEN PATIENT RESTING WITH EYES CLOSED. BREATHING E/U ON ROOM AIR. ON 5150HOLD. TELE#[address] NSR[address] IVF NS TO RAC INFUSING WELL AT 70ML/HR. SIDERAILS UP X2. WILL CONTINUE TO MONITOR.
--- NOTE | 2018-12-20 08:00 | NUR ---
DOCTOR WHITFIELD AND MEDICAL TEAM AT BEDSIDE FOR AM ROUND. PATIENT AWAKE, HAD SLOW VERBAL RESPONDED TO DOCTOR WHITFIELD AT THIS TIME.
--- NOTE | 2018-12-20 09:00 | NUR ---
SEEN IN BED AWAKE,ALERT, ORIENTED X2, APPEARS SAD AND DEPRESSED STATED MY NOT VERY NICE TO ME I WANT TO KNOW HOW DID I GET HERE AND WHEN. REORIENTED TO PATIENT. STATED I WANT TO WALK HOME I HAVE TO GO HOME. NOTED EASILY FORGETFUL. PLAN OF CARE DISCUSSED. CALL LIGHT PLACED WITHIN EASY REACH. SIDERAILS UP X2. SITTER 1:1 AT BEDSIDE.
--- NOTE | 2018-12-20 10:24 | NUR ---
PATIENT AGREED TO TAKE MORNING MEDS. AM SCHEDULED MEDS GIVEN.
--- NOTE | 2018-12-20 10:30 | NUR ---
INSISTED TO WALK, ASSISTED BY SITTER TO SIT IN CHAIR. OOZING BLOOD TO RIGHT GREAT TOE AMPUTATED SITE, CLEANED WITH NSS AND DRSG APPLIED.
--- NOTE | 2018-12-20 10:48 | NUR ---
ASSISTED BACK FROM CHAIR. NO ANY DISTRESS NOTED.
[2018-12-20 10:54] VITALS: BP 171/89
[2018-12-20 17:28] VITALS: BP 153/70
--- NOTE | 2018-12-20 19:35 | NUR ---
RECEIVED PT FROM DAY SHIFT RN. PT ALERT AND ORIENTED X4 WITH PERIODS OF CONFUSION. BREATHING EVEN AND UNLABORED ON RA WITH NO SOB NOTED. IV RFA PATENT, INFUSING WELL. PT HAS F/C IN PLACE DRAINING. RIGHT FOOT COVERED WITH DRESSING, CDI. NO SIGNS OF DISTRESS NOTED. SUPERVISOR COVERING AND LINING AT BEDSIDE. CALL BUTTON WITHIN REACH. SAFETY PRECAUTIONS IN PLACE. WILL MONITOR.
[2018-12-20 20:15] VITALS: BP 103/70
--- NOTE | 2018-12-21 00:48 | NUR ---
PT RESTING. BREATHING EVEN AND UNLABORED WITH NO SIGNS OF DISTRESS NOTED. IV PATENT AND INFUSING WELL. NO SIGNS OF DISTRESS. CALL BUTTON WITHIN REACH. SAFETY PRECAUTIONS IN PLACE. SITTER AT BEDSIDE. WILL CONTINUE TO MONITOR.
--- NOTE | 2018-12-21 04:03 | NUR ---
ROUNDS MADE. PT RESTING. BREATHING EVEN AND UNLABORED WITH NO SIGNS OF DISTRESS. CALL BUTTON WITHIN REACH. SAFETY PRECAUTIONS IN PLACE. SITTER AT BEDSIDE. WILL CONTINUE TO MONITOR.
--- NOTE | 2018-12-21 04:58 | NUR ---
PT SLEPT MOST OF THE NIGHT WITH NO SIGNS OF DISTRESS. BREATHING EVEN AND UNLABORED ON RA, WITH NO SOB NOTED. PT DENIES ANY DISTRESS. IV PATENT AND INFUSING WELL. F/C IN PACE, DRAINING YELLOW URINE. MEDICATED PER EMAR. CALL BUTTON WITHIN REACH. SAFETY PRECAUTIONS IN PLACE. SITTER AT BEDSIDE. WILL CONTINUE TO MONITOR AND ENDORSE CARE TO DAY SHIFT RN.
[2018-12-21 05:21] VITALS: BP 137/69
[2018-12-21 06:28] LABS: BASOPHIL % 0.4 % (0-2); PLATELET COUNT 242 x10^3mcL (130-400)
[2018-12-21 06:49] LABS: CALCIUM 9.3 mg/dL (8.5-10.1); CARBON DIOXIDE 30.1 mmol/L (21-32); CREATININE SERUM 1.2 mg/dL (0.6-1.0); POTASSIUM SERUM 4.2 mmol/L (3.5-5.1)
[2018-12-21 06:51] LABS: RED CELL DISTRIBUTION WIDTH 15.8 % (11.5-14.5)
--- NOTE | 2018-12-21 07:15 | NUR ---
RECEIVED PT FROM [facility]. PT RESTING IN BED WITH BOTH EYES CLOSED. NO S/S OF ACUTE DISTRESS. NO S/S OF PAIN. DRESSING TO RLE CLEAN/DRY/INTACT. IV WNL TO RFA, NO REDNESS, NO SWELLING, NO INFILTRATION. NO SOB ON ROOM AIR. VS STABLE: BP 153/86, HR 100, O2 SAT 93% ON ROOM AIR. RR 20. TEMP 98.4F. SITTER AT BEDSIDE. SIDE RAILS UP X2. FALL PREC IN PLACE. BED IN LOW POSITION. CALL LIGHT WITHIN REACH. WILL CONTINUE TO MONITOR.
[2018-12-21 07:20] VITALS: BP 153/86
--- NOTE | 2018-12-21 07:23 | NUR ---
PT IN NO SIGNS OF DISTRESS NOTED. ENDORSED CARE TO DAY SHIFT RN, ALL QUESTIONS ADDRESSED.
--- NOTE | 2018-12-21 08:39 | NUR ---
Wound care consult to right toe not dont pt. seen and follow by Dr. Layo Munroe RES DPM.
--- NOTE | 2018-12-21 11:43 | NUR ---
PT LAYING IN BED RESTING WITH BOTH EYES CLOSED. EASILY AROUSABLE TO VERBAL STIMULI. FACE SYMMETRICAL, SPEECH CLEAR. AA/OX4. CONFUSED AT TIMES, PT TALKING TO ON PHONE, PT STATES, "I HAD A SEIZURE RIGHT NOW", NO SEIZURES NOTED AT THIS TIME. SITTER AT BEDSIDE. VS STABLE. NO SOB ON ROOM AIR. NO TREMORS NOTED. NO S/S OF ACUTE DISTRESS. CALM/COOPERATIVE. BED IN LOW POSITION. CALL LIGHT WITHIN REACH. WILL CONTINUE TO MONITOR.
--- NOTE | 2018-12-21 13:39 | NUR ---
1. Recommend CCHO (mechanically soft- chopped diet)
--- NOTE | 2018-12-21 13:39 | NUR ---
Initial Nutrition Assessment: 252/A VERONIKA PASTRANA ANNE IA HR Dx: Acute psychosis, hypothyroidism PMHx: schizophrenia, bipolar disorder, alzheimers, DM, HTN, Depression, anxiety, hyperlipidemia PSHx: Great toe amputation Labs: BG 185H, CREAT 1.2H, MG 1.6L, A1C 7.9H Meds: Antivert, Ativan, Colace, D 50%, humulin, Lasix, Lipitor, norco Diet: CCHO PO Intake: (12/20) breakfast 30%, Ht: 162.56 cm (64") Wt: 91 kg (200#) BMI: 34.4 kg/m2 Bed scale: 86.2 kg IBW: 120# (54.5 kg) %IBW: 166 UBW: 85-90 kg Age: 63/F Food Allergies: NKFA Skin: R foot covered w/ dressing Javed: 18 Edema: none GI: Last BM: 12/18 Per H&P, Pt is a 63 year old female with PMH of schizophrenia, bipolar disorder, Alzheimer's, was brought to the ED by EMS after abnormal behavior for last 3 days. Pt did not sleep for 3 days nor took her psych meds in 3 days. Was admitted before for similar complaints. RDN Visit (12/21): Patient was alert but a little slow in comprehending. Patient said that she has forgotten her dentures and therefore has difficulty in chewing which affects her PO. Spoke with [employer] Arron to change the diet texture to mechanically soft-chopped. Patient FNS received woundcare consult on 12/20. Problem with: N/V/D/C: no Problems with: Chewing/Swallowing: none Current appetite: fair Recent wt change: none %wt change: N/A Vitamin/Supplement use: none Special diet at home: regular Physical activity: none Nutrition education given: Patient was unable to understand the concepts of diabetic diet properly due to current mentation. [place] handout on 'Type 2 Diabetes Nutrition Therapy' was placed by bedside. Food-drug interactions: Colace- high fiber w/1002-6746 ml fluids Education given: no Estimated Nutritional Needs Based on adjusted body weight 64 kg Energy: 1291-2977 kcal/d (25-30 kcal/kg) Protein: 64-77 g/d (1.0-1.2 g/kg) - preserve LBM Fluid: 8588-3641 ml/d (1 ml/kcal) or per doctor Nutrition Diagnosis 1. Inadequate oral intake related to chewing difficulty as evidenced by documented PO of 30% Intervention 1. Recommend CCHO (mechanically soft- chopped diet) Monitor/Evaluate Goal: PO intake at least 75% of estimated needs Monitor: PO intake, Labs, GI function F/U in 3-5 days as moderate risk 11/23-
--- NOTE | 2018-12-21 15:40 | NUR ---
WOUND CARE PROVIDED TO PATIENT PER PHYSICIAN ORDER: DRESSING REMOVED FROM RIGHT FOOT, NO DRAINAGE NOTED. WOUND MEASURES L 2CMX W 2CM, SUPERFICIAL, WOUND BED PINK WITH PINK BORDERS. NO FOUL ODOR NOTED. CLEANSED WITH NS/WOUND CLEANSER, GENTLY PATTED DRY, OIL EMULSION APPLIED, FOLLOWED BY 4X4 AND SECURED WITH DRY GAUZE/KERRI BANDAGE. CDI. PT TOLERATED WELL. NO S/S OF ACUTE DISTRESS. AA/OX4. NO SOB ON ROOM AIR. NO COMPLAINT OF PAIN. CALM/COOPERATIVE. SITTER AT BEDSIDE. WILL CONTINUE TO MONITOR.
[2018-12-21 16:16] VITALS: BP 146/80
--- NOTE | 2018-12-21 18:30 | NUR ---
PT LAYING IN BED. AA/OX4. CONFUSED/FORGETFUL AT TIMES. NO S/S OF ACUTE DISTRESS. CALM/COOPERATIVE AT THIS TIME. NO LOBATO. NO DIZZINESS. TOLERATING CCHO DIET WELL. NO N/V. NO COMPLAINT OF PAIN. DRESSING TO RLE CDI. IV WNL TO RFA, NO REDNESS, NO SWELLING, NO INFILTRATION. PATENT AND FLUSHES WELL. SALINE LOCKED. BED IN LOW POSITION. CALL LIGHT WITHIN REACH. WILL ENDORSE TO ONCOMING SHIFT.
--- NOTE | 2018-12-21 20:00 | NUR ---
RECEIVED PT IN BED, RESTING, WITH SITTER AT THE BEDSIDE FOR SAFETY. ALERT AND ORIENTED. CONFUSED AT TIMES. DENIES HEADACHE/DIZZINESS AT THIS TIME.RESP. EVEN AND UNLABORED. ON ROOM AIR, NO ACUTE DISTRESS NOTED. IVF, NS AT 70ML/HR, INTACT AND INFUSING VIA RFA, SITE CLEAR. DRESSING TO RT FOOT DRY AND INTACT. ABLE TO MOVE ALL EXTS. CARRION CATH TO GRAVITY, DRAINING YELLOW COLOR URINE. ASSISTED WITH HS CARE. CALL LIGHT WITHIN REACH. WILL CONTINUE TO MONITOR.
[2018-12-21 21:22] VITALS: BP 136/57
--- NOTE | 2018-12-21 22:18 | NUR ---
IV SITE LEAKING, DISCONT. NEW IV SITE RESTARTED ON LFA WITH #22G ANGIO. IVF RECONNECTED. WILL CONTINUE TO MONITOR.
--- NOTE | 2018-12-22 01:15 | NUR ---
COMPLAINED OF BACK AND LEGS PAIN, 5/10, REQUESTING PAIN MED, MEDICATED WITH NORCO ORDERED. WILL CONTINUE TO MONITOR.
--- NOTE | 2018-12-22 01:53 | NUR ---
EYES CLOSED, APPEARS ASLEEP, EASILY AROUSABLE. RESP. EVEN AND UNLABORED. NO ACUTE DISTRESS NOTED. WILL CONTINUE TO MONITOR.
[2018-12-22 05:09] VITALS: BP 114/73
[2018-12-22 06:22] LABS: CALCIUM 8.9 mg/dL (8.5-10.1); CARBON DIOXIDE 28.3 mmol/L (21-32); CREATININE SERUM 1.5 mg/dL (0.6-1.0); POTASSIUM SERUM 3.9 mmol/L (3.5-5.1)
[2018-12-22 06:24] LABS: BASOPHIL % 0.5 % (0-2); PLATELET COUNT 239 x10^3mcL (130-400)
--- NOTE | 2018-12-22 06:37 | NUR ---
AFEBRILE AND VITAL SIGNS STABLE. RESP. EVEN AND UNLABORED. ON ROOM AIR , NO ACUTE DISTRESS NOTED. NO COMPLAINTS NOTED AT THIS TIME. RESTING QUIETLY IN BED.SITTER AT THE BEDSIDE FOR SAFETY. IVF INTACT AND INFUSING WELL, SITE CLEAR. KEPT COMFORTABLE. WILL ENDORSE TO INCOMING NURSE.
[2018-12-22 07:03] LABS: RED CELL DISTRIBUTION WIDTH 16.3 % (11.5-14.5)
--- NOTE | 2018-12-22 07:19 | NUR ---
ASSUMED CARE OF PATIENT. SEEN RESTING IN BED THIS AM WITH EQUAL AND UNLABORED RESPIRATIONS. SITTER AT BEDSIDE. NO APPARENT DISTRESS NOTED. DRESSING TO RIGHT FOOT CDI. IV ON LFA PATENT AND INUFSING 70ML/HR. WILL CONTINUE TO MONITOR.
[2018-12-22 08:50] VITALS: BP 141/57
--- NOTE | 2018-12-22 09:31 | NUR ---
PATIENT WORKING WITH PT. AMBULATORY WITH WALKER.
--- NOTE | 2018-12-22 10:57 | NUR ---
BLADDER TRAINING INITIATED FOR CARRION CATHTER D/C
--- NOTE | 2018-12-22 15:14 | NUR ---
PATIENT LOOKING FORWARD TO DISCHARGE HOME. NOTIFIED THAT THIS IS MOST LIKELY HAPPENING TOMORROW, NOT TODAY. PATIENT AGREEABLE AND UNDERSTANDING AT THIS TIME.
--- NOTE | 2018-12-22 15:35 | NUR ---
DRESSING CHANGE PROVIDED TO RIGHT BIG TOE. APPEARS TO BE HEALING WELL, SURROUNDING TISSUE IS PINK WITH SCABS FORMING ON WOUND BED. NO SWELLING OR S/SX OF INFECTION NOTED. WOUND CLEANSED WITH WOUND CLEANSER, OIL EMERSION DRESSING APPLIED, DRY DRESSING APPLIED, HELD WITH KERRI WRAPPING. NO COMPLAINTS OF PAIN FROM BIG TOE.
--- NOTE | 2018-12-22 17:20 | NUR ---
PATIENT SEEN IN BED WITH NO COMPLAINTS OF PAIN OR DISCOMFORT. CONTINUES TO HAVE FLAT AFFECT AND ANXIOUS, CONCERED THAT SHE IS A "BOTHER" TO STAFF. REASSURRED THAT SHE IS NOT, REQUIRES FREQUENT REDIRECTION.
--- NOTE | 2018-12-22 18:44 | NUR ---
PATIENT SEEN RESTING IN BED WITH NO COMPLAINTS OF PAIN OR DISCOMFORT. NO APPARENT DISTRESS NOTED. IV TO LFA PATENT AND INFUSING 70ML/HR NS. NO REDNESS OR SWELLING NOTED. WILL ENDORSE CARE TO ONCOMING RN.
[2018-12-22 19:15] VITALS: BP 132/99
--- NOTE | 2018-12-22 20:00 | NUR ---
PT AAO VERBAL, WITH PERIODS OF FORGETFULNESS, DENIES HEADACHE OR DIZZINESS, LUNGS CTA NO DISTRESS, IVF NS INFUSING WELL ORDERED, IV ACCESS @ LFA PATENT NON INFIL, BED ALARM ON FOR SAFETY, NO BEHAV ISSUES AT THIS TIME, PT ASKING SOME QUESTIONS, REALITY ORIENTATION PROVIDED, NO C/O PAIN, SHIFT ASSESSMENT DONE, CALL LIGHT AT REACH, CONT TO MONITOR.
[2018-12-22 20:46] VITALS: BP 152/80
[2018-12-23 06:14] VITALS: BP 158/76
--- NOTE | 2018-12-23 06:35 | NUR ---
PT SLEPT WELL DURING THE SHIFT, DENIES PAIN NO DISTRESS, CONVERSANT AND ABLE TO VERBALIZED NEEDS, V/S STABLE, NO BEHAV ISSUES, FOLLOWS SIMPLE COMMANDS, AMBULATES TO THE BATHROOM WITH ASSIST, WILL ENDORSE TO INCOMING SHIFT FOR F/U CARE.
--- NOTE | 2018-12-23 07:50 | NUR ---
PATIENT RESTING IN BED, NO ACUTE DISTRESS NOTED. PATIENT DENIES PAIN. PATIENT IS A/OX3, WITH PERIODS OF CONFUSION & FORGETFUL AT TIMES. PATIENT IS AMBULATORY WITH ASSIST. DRESSING NOTED TO RIGHT TOE, DRESSING CDI. NS IV INFUSING TO LFA AT 70 ML/HR, NO S/S OF INFILTRATION. CALL LIGHT WITHIN REACH, BED IN LOW POSITION, WILL CONTINUE TO MONITOR.
[2018-12-23 08:00] VITALS: BP 147/77
--- NOTE | 2018-12-23 11:19 | NUR ---
PATIENT AMBULATED HALLWAY USING WALKER, SLOW GAIT NOTED. PHYSICAL THERAPIST AT SIDE. NO ACUTE DISTRESS NOTED. WILL CONTINUE TO MONITOR.
[2018-12-23 13:13] VITALS: BP 147/77
--- NOTE | 2018-12-23 14:20 | NUR ---
PROVIDED PATIENT WITH DRESSING CHANGE TO RIGHT BIG TOE, NO DRAINAGE OR FOUL ORDER NOTED TO WOUND. WOUND APPEARS PINK, FOLLOWED WOUND CARE INSTRUCTIONS. PATIENT DENIES PAIN. PHOTOS OF WOUND TAKEN AT THIS TIME AND PLACED IN PT CHART. CALL LIGHT WITHIN REACH.
[2018-12-23 17:50] VITALS: BP 143/88
--- NOTE | 2018-12-23 18:48 | NUR ---
PATIENT IS TO BE DISCHARGED HOME TODAY. PATIENT RECEIVED COPY OD D/C INSTRUCTIONS, PATIENT & UNDERSTAND AND AGREE WITH PLAN OF CARE INCLUDING MEDICATIONS& AND F/U WITH PCP & PODIATRY. IV TO LFA REMOVED, CATH INTACT. ARMBANDS REMOVED. PATIENT PROVIDED WITH POST OP SHOE. DR KENNEDY AWARE PATIENT WAS ON PTU FOR HYPERTHYROIDISM, AWAITING FOR ANY ADDITIONAL PRESCRIPTIONS AT THIS TIME NONE WERE PRESCRIBED UPON D/C.
--- NOTE | 2018-12-23 19:31 | NUR ---
PRECRIPTION GIVEN TO PATIENT FOR HYPERTHYROIDISM. PATIENT AWARE SHE WILL NEED TO F/U WITH PCP. ALL QUESTIONS & CONCERNS ADDRESSED. WOUND CARE SUPPLIES GIVEN TO PATIENT.
== END 2018-12-23 19:38 | disposition home health service (06) | DRG 682 ==
LOC: ED 23:29 → DU 12-19 01:34 → MU 12-19 01:34 → DU 12-19 03:08 → MU 12-20 11:49
PROVIDERS: Emergency Medicine; Internal Medicine; ADMIT Internal Medicine
PROC: 0HBMXZZ Excision of Right Foot Skin, External Approach (ICD-10-PCS; principal; 2018-12-23)
DX: N17.0 Acute kidney failure with tubular necrosis (principal); G93.41 Metabolic encephalopathy; E44.0 Moderate protein-calorie malnutrition; E87.1 Hypo-osmolality and hyponatremia; E86.0 Dehydration; F25.0 Schizoaffective disorder, bipolar type; E11.621 Type 2 diabetes mellitus with foot ulcer; L97.511 Non-pressure chronic ulcer of other part of right foot limited to breakdown of skin; E11.65 Type 2 diabetes mellitus with hyperglycemia; E05.90 Thyrotoxicosis, unspecified without thyrotoxic crisis or storm; E83.52 Hypercalcemia; E78.5 Hyperlipidemia, unspecified; F43.10 Post-traumatic stress disorder, unspecified; G30.9 Alzheimer's disease, unspecified; F02.80 Dementia in other diseases classified elsewhere, unspecified severity, without behavioral disturbance, psychotic disturbance, mood disturbance, and anxiety; Z68.34 Body mass index [BMI] 34.0-34.9, adult; Z89.411 Acquired absence of right great toe; Z79.84 Long term (current) use of oral hypoglycemic drugs; Z91.14 Patient's other noncompliance with medication regimen
CPT/HCPCS: 82962; 84439; 97116-GP; 97530-GP; G0378; G0480; J0696; J1630; J1815; J7030; Q0092

== ENCOUNTER 2019-11-01 23:31 | Inpatient (IN) | payer OTHER, SELFPAY ==
[~2019-11-01] VITALS: Ht 160 cm; Wt 96.6 kg
[2019-11-01 23:33] VITALS: Ht 160 cm; Wt 96.6 kg
[2019-11-02 00:38] LABS: BASOPHIL % 0.7 % (0-2); PLATELET COUNT 221 x10^3mcL (130-400); RED CELL DISTRIBUTION WIDTH 18.4 % (11.5-14.5)
[2019-11-02 00:47] LABS: BILIRUBIN TOTAL 0.46 mg/dL (0.20-1.00); C REACTIVE PROTEIN 0.6 mg/dL (<=0.9); CALCIUM 9.3 mg/dL (8.5-10.1); CARBON DIOXIDE 28.7 mmol/L (21-32); CREATININE SERUM 1.6 mg/dL (0.6-1.0); POTASSIUM SERUM 4.9 mmol/L (3.5-5.1)
[2019-11-02 00:51] LABS: ALBUMIN 3.3 g/dL (3.4-5.0)
[2019-11-02 01:24] LABS: microscopic required? NO
[2019-11-02 01:51] LABS: urine erythrocyte NEGATIVE (NEGATIVE)
[2019-11-02] MEDS ORDERED: COZAAR50 M1 PO (01:53)
[2019-11-02] MEDS ORDERED: PTU PO (01:57)
[2019-11-02] MEDS ORDERED: HYDROCODONE BIT1 T52 (01:58)
[2019-11-02] MEDS ORDERED: IBU600 M2 (01:58)
[2019-11-02 03:20] VITALS: BP 138/61
[2019-11-02 08:07] LABS: CALCIUM 9.4 mg/dL (8.5-10.1); CARBON DIOXIDE 29.4 mmol/L (21-32); CREATININE SERUM 1.5 mg/dL (0.6-1.0); MAGNESIUM 1.8 mg/dL (1.8-2.4); PHOSPHOROUS 4.4 mg/dL (2.5-4.9)
[2019-11-02 09:00] LABS: BASOPHIL % 0.3 % (0-2); PLATELET COUNT 282 x10^3mcL (130-400)
[2019-11-02 09:01] LABS: RED CELL DISTRIBUTION WIDTH 18.7 % (11.5-14.5)
[2019-11-02 15:43] VITALS: BP 130/54
[2019-11-02 20:25] VITALS: BP 115/47
[2019-11-03] VITALS (7 sets, daily range): BP systolic 83–1245; BP diastolic 46–69
[2019-11-03 05:32] LABS: BASOPHIL % 0.3 % (0-2); PLATELET COUNT 184 x10^3mcL (130-400)
[2019-11-03 05:44] LABS: RED CELL DISTRIBUTION WIDTH 18.3 % (11.5-14.5)
[2019-11-03 05:48] LABS: CREATININE SERUM 1.5 mg/dL (0.6-1.0); MAGNESIUM 1.8 mg/dL (1.8-2.4); PHOSPHOROUS 3.2 mg/dL (2.5-4.9); POTASSIUM SERUM 4.8 mmol/L (3.5-5.1)
[2019-11-04 03:50] VITALS: BP 141/71
[2019-11-04 05:25] LABS: BASOPHIL % 1.3 % (0-2); PLATELET COUNT 198 x10^3mcL (130-400)
[2019-11-04 05:26] LABS: RED CELL DISTRIBUTION WIDTH 18.8 % (11.5-14.5)
[2019-11-04 05:40] LABS: C REACTIVE PROTEIN 5.3 mg/dL (<=0.9); CALCIUM 9.3 mg/dL (8.5-10.1); CARBON DIOXIDE 33.5 mmol/L (21-32); MAGNESIUM 1.9 mg/dL (1.8-2.4); PHOSPHOROUS 3.6 mg/dL (2.5-4.9); POTASSIUM SERUM 4.9 mmol/L (3.5-5.1)
[2019-11-04 08:00] VITALS: BP 136/65
[2019-11-04 12:00] VITALS: BP 128/53
[2019-11-04 15:35] VITALS: BP 129/67
[2019-11-04 16:52] VITALS: BP 141/62
[2019-11-04 20:51] VITALS: BP 151/68
[2019-11-05 05:33] VITALS: BP 140/56
[2019-11-05 06:51] LABS: CALCIUM 8.8 mg/dL (8.5-10.1); CARBON DIOXIDE 34.1 mmol/L (21-32); MAGNESIUM 1.8 mg/dL (1.8-2.4); PHOSPHOROUS 3.3 mg/dL (2.5-4.9)
[2019-11-05 06:53] LABS: BASOPHIL % 0.1 % (0-2); PLATELET COUNT 203 x10^3mcL (130-400)
[2019-11-05 06:54] LABS: RED CELL DISTRIBUTION WIDTH 18.2 % (11.5-14.5)
[2019-11-05 07:56] VITALS: BP 139/71
[2019-11-05 10:24] VITALS: BP 139/71
[2019-11-05 12:30] VITALS: BP 150/62
[2019-11-05 16:35] VITALS: BP 137/52
[2019-11-05 21:31] VITALS: BP 137/48
[2019-11-06 05:30] VITALS: BP 137/60
[2019-11-06 06:38] LABS: PLATELET COUNT 179 x10^3mcL (130-400)
[2019-11-06 07:33] LABS: CALCIUM 8.8 mg/dL (8.5-10.1); CARBON DIOXIDE 33.9 mmol/L (21-32); CREATININE SERUM 1.9 mg/dL (0.6-1.0); MAGNESIUM 1.9 mg/dL (1.8-2.4); PHOSPHOROUS 3.5 mg/dL (2.5-4.9); POTASSIUM SERUM 5.1 mmol/L (3.5-5.1)
[2019-11-06 07:35] LABS: BASOPHIL % 0 % (0-2); RED CELL DISTRIBUTION WIDTH 17.9 % (11.5-14.5)
[2019-11-06 07:46] VITALS: BP 162/83
[2019-11-06 13:36] VITALS: BP 158/76
[2019-11-06 17:42] VITALS: BP 163/79
[2019-11-06 20:52] VITALS: BP 141/52
[2019-11-07 05:44] VITALS: BP 154/73
[2019-11-07 06:54] LABS: CALCIUM 9.4 mg/dL (8.5-10.1); CARBON DIOXIDE 33.9 mmol/L (21-32); CREATININE SERUM 1.7 mg/dL (0.6-1.0); MAGNESIUM 2.1 mg/dL (1.8-2.4); PHOSPHOROUS 3.9 mg/dL (2.5-4.9); POTASSIUM SERUM 4.7 mmol/L (3.5-5.1)
[2019-11-07 06:55] LABS: PLATELET COUNT 175 x10^3mcL (130-400)
[2019-11-07 07:19] LABS: BASOPHIL % 0 % (0-2); RED CELL DISTRIBUTION WIDTH 18.2 % (11.5-14.5)
[2019-11-07 08:00] VITALS: BP 138/81
[2019-11-07 12:13] VITALS: BP 158/70
[2019-11-07 16:30] VITALS: BP 160/67
[2019-11-07 20:08] VITALS: BP 164/65
[2019-11-08 05:49] VITALS: BP 160/71
[2019-11-08 06:34] LABS: BASOPHIL % 0.1 % (0-2); PLATELET COUNT 175 x10^3mcL (130-400)
[2019-11-08 06:48] LABS: CALCIUM 9.7 mg/dL (8.5-10.1); CARBON DIOXIDE 32.6 mmol/L (21-32); CREATININE SERUM 1.8 mg/dL (0.6-1.0); POTASSIUM SERUM 4.4 mmol/L (3.5-5.1)
[2019-11-08 06:52] LABS: RED CELL DISTRIBUTION WIDTH 17.9 % (11.5-14.5)
[2019-11-08 08:54] VITALS: BP 180/89
[2019-11-08 12:25] VITALS: BP 161/77
[2019-11-08] MEDS ORDERED: HUMULIN R100 U/1 M1 SC (13:45)
[2019-11-08] MEDS ORDERED: DELTASONE20 MG PO ×2 (13:46→13:47)
[2019-11-08] MEDS ORDERED: RAYOS5 MG PO ×2 (13:47→13:48)
[2019-11-08] MEDS ORDERED: RAYOS2 MG PO (13:48)
[2019-11-08] MEDS ORDERED: INSULIN SYRING1 EA29 SQ (13:52)
[2019-11-08] MEDS ORDERED: AZITHROMYCIN500 M3 PO (14:00)
[2019-11-08 16:33] VITALS: BP 156/65
== END 2019-11-08 18:08 | disposition home or self-care (01) | DRG 193 ==
LOC: ED 23:31 → DU 11-02 02:11 → IC 11-02 02:11 → DU 11-04 14:57
PROVIDERS: Emergency Medicine; Internal Medicine Nephrology; ADMIT Student in an Organized Health Care Education/Training Program; ATTEND Student in an Organized Health Care Education/Training Program
DX: J18.9 Pneumonia, unspecified organism (principal); J96.02 Acute respiratory failure with hypercapnia; J96.01 Acute respiratory failure with hypoxia; N17.0 Acute kidney failure with tubular necrosis; E44.0 Moderate protein-calorie malnutrition; E22.2 Syndrome of inappropriate secretion of antidiuretic hormone; E86.0 Dehydration; E11.65 Type 2 diabetes mellitus with hyperglycemia; F20.9 Schizophrenia, unspecified; G30.9 Alzheimer's disease, unspecified; F02.80 Dementia in other diseases classified elsewhere, unspecified severity, without behavioral disturbance, psychotic disturbance, mood disturbance, and anxiety; F41.9 Anxiety disorder, unspecified; R79.89 Other specified abnormal findings of blood chemistry; D64.9 Anemia, unspecified; L97.519 Non-pressure chronic ulcer of other part of right foot with unspecified severity; Z20.828 Contact with and (suspected) exposure to other viral communicable diseases; F32.9 Major depressive disorder, single episode, unspecified; E11.9 Type 2 diabetes mellitus without complications; I10 Essential (primary) hypertension; F17.210 Nicotine dependence, cigarettes, uncomplicated; E78.00 Pure hypercholesterolemia, unspecified; E78.5 Hyperlipidemia, unspecified; Z88.0 Allergy status to penicillin; Z89.419 Acquired absence of unspecified great toe; Z79.899 Other long term (current) drug therapy; Z83.3 Family history of diabetes mellitus; Z82.49 Family history of ischemic heart disease and other diseases of the circulatory system; Z68.28 Body mass index [BMI] 28.0-28.9, adult
CPT/HCPCS: 36600; 82962; 83880; 85378; 87804; 97110-GP; 97530-GP; G0378; J1644; J1815; J1940; J1956; J2920; J7030; J7050; Q0092; U0003-CS

== ENCOUNTER 2019-12-06 17:03 | Emergency (ER) | payer OTHER, SELFPAY ==
[~2019-12-06] VITALS: Ht 162.6 cm; Wt 86.2 kg
[~2019-12-06 17:03] MED LIST changes: +AZITHROMYCIN500 M3 PO; +COZAAR50 M1 PO; +DELTASONE20 MG PO; +HUMULIN R100 U/1 M1 SC; +HYDROCODONE BIT1 T52; +IBU600 M2; +INSULIN SYRING1 EA29 SQ; +PTU PO; +RAYOS2 MG PO; +RAYOS5 MG PO
[2019-12-06 17:05] VITALS: Ht 162.6 cm; Wt 86.2 kg
[2019-12-06 18:16] LABS: BASOPHIL % 0.2 % (0-2); PLATELET COUNT 262 x10^3mcL (130-400)
[2019-12-06 18:22] LABS: CALCIUM 9.6 mg/dL (8.5-10.1); CARBON DIOXIDE 33.6 mmol/L (21-32); CREATININE SERUM 2.4 mg/dL (0.6-1.0); POTASSIUM SERUM 4.9 mmol/L (3.5-5.1)
[2019-12-06 18:24] LABS: RED CELL DISTRIBUTION WIDTH 20.4 % (11.5-14.5)
[2019-12-06 18:26] LABS: BILIRUBIN TOTAL 0.5 mg/dL (0.20-1.00); TOTAL PROTEIN, SERUM 6.4 g/dL (6.4-8.2)
[2019-12-06 18:29] LABS: ALBUMIN 2.9 g/dL (3.4-5.0); CHOLESTEROL/HDL RATIO 5.4
[2019-12-06 18:48] LABS: rbc morphology (normal/abnorm) ABNORMAL (NORMAL)
[2019-12-06 19:05] LABS: T3 TOTAL 0.89 ng/mL
[2019-12-06 19:31] LABS: FREE T4 0.53 ng/dL (0.76-1.46); FREE THYROXINE INDEX 0.9 ug/dL (1.4-4.5); T4(THYROXINE) 3.8 ug/dL (4.7-13.3)
[2019-12-06 21:50] VITALS: BP 131/59
== END 2019-12-06 21:50 | disposition home or self-care (01) ==
LOC: ED 17:03
PROVIDERS: Specialist
DX: R00.2 Palpitations (principal); J18.9 Pneumonia, unspecified organism; I10 Essential (primary) hypertension; E11.9 Type 2 diabetes mellitus without complications; E78.00 Pure hypercholesterolemia, unspecified; Z88.0 Allergy status to penicillin
CPT/HCPCS: 83880; 84439; Q0092

== ENCOUNTER 2020-07-17 17:08 | Inpatient (IN) | payer OTHER ==
[~2020-07-17] VITALS: Ht 162.6 cm; Wt 89.0 kg
[~2020-07-17 17:08] MED LIST changes: +DULOXETINE HYDR30 MG PO; +FLOMAX0.4 MG PO; +FLORANEX1 CT2 PO; +LEVAQUIN500 M1 PO; +NEU100 PO; +TRA50 PO
[2020-07-17 17:13] VITALS: Ht 162.6 cm; Wt 89.0 kg
[2020-07-17 18:58] LABS: BASOPHIL % 0.6 % (0.2-1.3); PLATELET COUNT 323 x10^3mcL (179-408)
[2020-07-17 19:06] LABS: RED CELL DISTRIBUTION WIDTH 17.4 % (12.3-17.7)
[2020-07-17 19:19] LABS: CALCIUM 10.2 mg/dL (8.5-10.1); CARBON DIOXIDE 24.9 mmol/L (21-32); CREATININE SERUM 2.1 mg/dL (0.6-1.0); POTASSIUM SERUM 5.3 mmol/L (3.5-5.1)
[2020-07-17 19:23] LABS: ALBUMIN 2.9 g/dL (3.4-5.0); BILIRUBIN TOTAL 0.5 mg/dL (0.20-1.00); TOTAL PROTEIN, SERUM 6.9 g/dL (6.4-8.2)
[2020-07-17 21:05] LABS: CHOLESTEROL/HDL RATIO 3.4
[2020-07-17 23:15] VITALS: BP 139/46
[2020-07-17 23:51] VITALS: BP 139/46
[2020-07-18 06:30] VITALS: BP 151/49
[2020-07-18 06:50] LABS: CARBON DIOXIDE 22.6 mmol/L (21-32); CREATININE SERUM 2.1 mg/dL (0.6-1.0); MAGNESIUM 1.9 mg/dL (1.8-2.4); PHOSPHOROUS 5.3 mg/dL (2.5-4.9)
[2020-07-18 07:18] LABS: BASOPHIL % 0.2 % (0.2-1.3); PLATELET COUNT 296 x10^3mcL (179-408)
[2020-07-18 07:20] LABS: T3 TOTAL 0.35 ng/mL
[2020-07-18 07:35] LABS: POTASSIUM SERUM 6.3 mmol/L (3.5-5.1)
[2020-07-18 07:43] LABS: RED CELL DISTRIBUTION WIDTH 17.4 % (12.3-17.7)
[2020-07-18 09:19] LABS: RED BLOOD CELLS 2.97 M/mm3 (4.10-5.10)
[2020-07-18 09:35] VITALS: BP 156/61
[2020-07-18 10:18] LABS: IRON 41 ug/dL (50-170); TOTAL IRON BINDING CAPACITY 293 ug/dL (250-450)
[2020-07-18 11:24] LABS: FREE T4 0.48 ng/dL (0.76-1.46)
[2020-07-18 11:29] LABS: FREE THYROXINE INDEX 0.8 ug/dL (1.4-4.5); T4(THYROXINE) 2.3 ug/dL (4.7-13.3)
[2020-07-18 12:23] VITALS: BP 150/54
[2020-07-18 12:25] LABS: CALCIUM 9.8 mg/dL (8.5-10.1); CARBON DIOXIDE 24.3 mmol/L (21-32); CREATININE SERUM 2.2 mg/dL (0.6-1.0)
[2020-07-18 12:37] LABS: POTASSIUM SERUM 6.3 mmol/L (3.5-5.1)
[2020-07-18 18:08] LABS: CALCIUM 10.1 mg/dL (8.5-10.1); CARBON DIOXIDE 22.7 mmol/L (21-32); CREATININE SERUM 2.2 mg/dL (0.6-1.0); POTASSIUM SERUM 5.1 mmol/L (3.5-5.1)
[2020-07-18 19:36] LABS: CREATININE UR 44.7 mg/dL
[2020-07-18 21:10] VITALS: BP 169/62
[2020-07-19] VITALS (7 sets, daily range): BP systolic 108–167; BP diastolic 44–75
[2020-07-19 08:53] LABS: BASOPHIL % 1.1 % (0.2-1.3); PLATELET COUNT 274 x10^3mcL (179-408)
[2020-07-19 08:58] LABS: RED CELL DISTRIBUTION WIDTH 17.3 % (12.3-17.7)
[2020-07-19 09:13] LABS: CALCIUM 9.8 mg/dL (8.5-10.1); CARBON DIOXIDE 23.8 mmol/L (21-32); MAGNESIUM 1.9 mg/dL (1.8-2.4); PHOSPHOROUS 3.9 mg/dL (2.5-4.9); POTASSIUM SERUM 4.9 mmol/L (3.5-5.1)
[2020-07-19 14:07] LABS: UA SPECIFIC GRAVITY 1.025 (1.005-1.035); microscopic required? YES; urine erythrocyte 1+ (NEGATIVE)
[2020-07-20 05:53] VITALS: BP 145/58
[2020-07-20 06:20] LABS: BASOPHIL % 0.5 % (0.2-1.3); PLATELET COUNT 298 x10^3mcL (179-408)
[2020-07-20 06:36] LABS: RED CELL DISTRIBUTION WIDTH 16.9 % (12.3-17.7)
[2020-07-20 06:43] LABS: CALCIUM 9.6 mg/dL (8.5-10.1); CARBON DIOXIDE 26.8 mmol/L (21-32); CREATININE SERUM 1.8 mg/dL (0.6-1.0); MAGNESIUM 1.8 mg/dL (1.8-2.4); POTASSIUM SERUM 4.8 mmol/L (3.5-5.1)
[2020-07-20 08:21] VITALS: BP 155/65
[2020-07-20 11:56] VITALS: BP 171/64
[2020-07-20 16:44] VITALS: BP 163/76
[2020-07-20 19:33] VITALS: BP 154/71
[2020-07-21 04:31] VITALS: BP 132/62
[2020-07-21 06:39] LABS: BASOPHIL % 0.5 % (0.2-1.3); PLATELET COUNT 302 x10^3mcL (179-408)
[2020-07-21 06:44] LABS: RED CELL DISTRIBUTION WIDTH 17.2 % (12.3-17.7)
[2020-07-21 07:04] LABS: CALCIUM 9.7 mg/dL (8.5-10.1); CREATININE SERUM 1.8 mg/dL (0.6-1.0); MAGNESIUM 1.8 mg/dL (1.8-2.4); POTASSIUM SERUM 4.9 mmol/L (3.5-5.1)
[2020-07-21 08:26] VITALS: BP 138/56
[2020-07-21 12:13] VITALS: BP 147/67
[2020-07-21 17:28] VITALS: BP 132/59
[2020-07-21 19:34] VITALS: BP 127/55
[2020-07-22 06:20] VITALS: BP 125/64
[2020-07-22 07:12] LABS: BASOPHIL % 0.7 % (0.2-1.3); PLATELET COUNT 284 x10^3mcL (179-408)
[2020-07-22 07:21] LABS: CALCIUM 9.5 mg/dL (8.5-10.1); CARBON DIOXIDE 28.9 mmol/L (21-32); CREATININE SERUM 1.9 mg/dL (0.6-1.0)
[2020-07-22 07:59] LABS: RED CELL DISTRIBUTION WIDTH 16.9 % (12.3-17.7)
[2020-07-22 08:14] VITALS: BP 146/67
[2020-07-22 12:07] VITALS: BP 155/64
[2020-07-22 18:15] VITALS: BP 161/68
[2020-07-22 19:49] VITALS: BP 155/70
[2020-07-23 05:18] VITALS: BP 124/80
[2020-07-23 06:39] LABS: CALCIUM 9.1 mg/dL (8.5-10.1); CARBON DIOXIDE 29.9 mmol/L (21-32); CREATININE SERUM 1.9 mg/dL (0.6-1.0); MAGNESIUM 1.9 mg/dL (1.8-2.4); POTASSIUM SERUM 4.5 mmol/L (3.5-5.1)
[2020-07-23 07:11] LABS: BASOPHIL % 0.6 % (0.2-1.3); PLATELET COUNT 294 x10^3mcL (179-408)
[2020-07-23 08:44] VITALS: BP 143/65
[2020-07-23] MEDS ORDERED: NEU100 PO (11:31)
[2020-07-23] MEDS ORDERED: ATORVASTATIN CA40 M1 PO (11:31)
[2020-07-23] MEDS ORDERED: LANTI SQ (11:32)
[2020-07-23] MEDS ORDERED: VENTOLIN H0.09 MG/A1 INH (11:32)
[2020-07-23] MEDS ORDERED: PTU PO (11:33)
[2020-07-23] MEDS ORDERED: INSULIN SYRING1 EA29 SQ (11:35)
[2020-07-23] MEDS ORDERED: GLIPIZIDE10 M2 PO (11:35)
[2020-07-23] MEDS ORDERED: EASY COMFORT ALCO70% TOP (11:35)
[2020-07-23] MEDS ORDERED: LASIX20 MG PO (11:36)
[2020-07-23 12:57] VITALS: BP 172/77
[2020-07-23 13:43] VITALS: BP 172/77
== END 2020-07-23 15:55 | disposition home health service (06) | DRG 291 ==
LOC: ED 17:08 → DU 20:39
PROVIDERS: Emergency Medicine; ADMIT Internal Medicine; ATTEND Internal Medicine
DX: I13.0 Hypertensive heart and chronic kidney disease with heart failure and stage 1 through stage 4 chronic kidney disease, or unspecified chronic kidney disease (principal); J18.9 Pneumonia, unspecified organism; J96.01 Acute respiratory failure with hypoxia; G93.41 Metabolic encephalopathy; N17.0 Acute kidney failure with tubular necrosis; I50.43 Acute on chronic combined systolic (congestive) and diastolic (congestive) heart failure; E87.1 Hypo-osmolality and hyponatremia; J44.0 Chronic obstructive pulmonary disease with (acute) lower respiratory infection; J44.1 Chronic obstructive pulmonary disease with (acute) exacerbation; E44.0 Moderate protein-calorie malnutrition; Z20.822 Contact with and (suspected) exposure to COVID-19; F31.9 Bipolar disorder, unspecified; F20.9 Schizophrenia, unspecified; Z89.412 Acquired absence of left great toe; E78.00 Pure hypercholesterolemia, unspecified; F41.9 Anxiety disorder, unspecified; G30.9 Alzheimer's disease, unspecified; F02.80 Dementia in other diseases classified elsewhere, unspecified severity, without behavioral disturbance, psychotic disturbance, mood disturbance, and anxiety; E87.5 Hyperkalemia; Z90.49 Acquired absence of other specified parts of digestive tract; Z79.4 Long term (current) use of insulin; Z83.3 Family history of diabetes mellitus; Z82.49 Family history of ischemic heart disease and other diseases of the circulatory system; F17.200 Nicotine dependence, unspecified, uncomplicated; E11.65 Type 2 diabetes mellitus with hyperglycemia; E05.90 Thyrotoxicosis, unspecified without thyrotoxic crisis or storm; D64.9 Anemia, unspecified; I45.5 Other specified heart block; N18.9 Chronic kidney disease, unspecified
CPT/HCPCS: 36600; 82962; 83880; 84439; 97110-GP; 97116-GP; 97530-GP; G0378; J0360; J0456; J0610; J0696; J1100; J1815; J1956; J2405; J3490; J7030; J7050; J7060; J7613; J7644; U0003